=== PATIENT | female | born 1950 | race Caucasian/White ===

== ENCOUNTER → 2017-01-10 | Outpatient (CLI) | payer OTHER ==
[~2017-01-10] MED LIST: ADVIL 200MG TA200 MG PO; ASPIR-LOW81 MG PO; CALCIUM600 M1 PO; CALTRATE 600 +1 TAB PO; CEPHALEXIN500 M1 PO; EXCEDRIN 250 MG1 TAB PO; EXCEDRIN1 TAB PO; FIBER CHOICE1 CTB PO; FIBERCON625 MG PO; FIBRO-TABS1 TAB PO; FISH OIL CONC1000 MG PO; MOTRIN 200200 MG/TAB PO; MULTIPLE VITAMI1 CAP PO; MVI; NORCO 325 MG-51 TAB PO; NORCO 325 MG-7.1 TAB PO; PHENERGAN 25 TA25 MG PO; REQUIP 0.5MG0.5 MG PO; VITAMIN D 400400 IU PO; ZOFRAN 4MG T4 MG/TAB PO
== END ==
LOC: MC.RAD 14:51
DX: Z12.31 Encounter for screening mammogram for malignant neoplasm of breast (principal)

== ENCOUNTER 2017-03-15 06:25 | Day surgery (SDC) | payer OTHER ==
[~2017-03-15] VITALS: Ht 160 cm; Wt 60.3 kg
[2017-03-15 06:40] VITALS: BP 129/72; PULSE 60; TEMP 97.7
[2017-03-15 07:55] VITALS: BP 96/68; PULSE 65; TEMP 97.3
[2017-03-15 08:10] VITALS: BP 109/67; PULSE 54
[2017-03-15 08:25] VITALS: BP 107/64; PULSE 56
[2017-03-15 08:40] VITALS: BP 110/67; PULSE 53
== END 2017-03-15 08:45 | disposition home or self-care (01) ==
LOC: SDCO 06:25
DX: Z12.11 Encounter for screening for malignant neoplasm of colon (principal); K57.30 Diverticulosis of large intestine without perforation or abscess without bleeding; K63.89 Other specified diseases of intestine; Z80.7 Family history of other malignant neoplasms of lymphoid, hematopoietic and related tissues
CPT/HCPCS: OP; J2250; J3010; J7030

== ENCOUNTER → 2017-06-21 | Outpatient (REF) | LOC: WSOH 13:07 | DX: Z02.89 Encounter for other administrative examinations (principal) ==

== ENCOUNTER → 2018-03-03 | Outpatient (CLI) | payer OTHER | LOC: MC.RAD 13:57 | DX: Z12.31 Encounter for screening mammogram for malignant neoplasm of breast (principal) ==

== ENCOUNTER 2018-12-28 12:37 | Emergency (ER) | payer OTHER, MEDICARE ==
[~2018-12-28] VITALS: Ht 160 cm; Wt 57.7 kg
[~2018-12-28 12:37] MED LIST changes: +CALCIUM CARBON650 M2 PO; +FIBERCON PO; +MULTI VITAMINS1 TAB PO
[2018-12-28 12:40] VITALS: TEMP 98.1
[2018-12-28] MEDS ORDERED: GUAIFENESIN DA473 ML (12:48)
[2018-12-28] MEDS ORDERED: PROAIR HFA0.09 MG/AC IH (12:48)
[2018-12-28] MEDS ORDERED: ZITHROMAX 250M250 MG PO (12:49)
[2018-12-28 13:11] LABS: BASO % 0.4 % (0.0-2.0); EOS # 0.1 (0.0-0.7); EOS % 1.8 % (0-4.0); GRAN # 4.2 (1.4-6.5); GRAN % 57.4 % (42.2-75.2); HEMOGLOBIN 13.7 g/dl (12.5-16.0); LYMPH # 2.4 (1.2-3.4); LYMPH % 33.3 % (20.0-51.0); MEAN CELL VOLUME 92 fl (80.0-100.0); MEAN CORPUSCULAR HEMOGLOBIN 31 pg (27.0-31.0); MEAN CORPUSCULAR HGB CONC 33 g/dl (33.0-37.0); MONO # 0.5 (0.1-0.6); MONO % 6.8 % (1.7-9.3); PLATELET COUNT 443 K/mm3 (130-400); RED BLOOD COUNT 4.48 M/mm3 (4.10-5.30); REDCELL DISTRIBUTION WIDTH-CV 11.8 % (11.5-14.5)
[2018-12-28 13:27] LABS: ALANINE AMINOTRANSFERASE 24 U/L (9-52); ALBUMIN 4.5 gm/dL (3.5-5.0); ALKALINE PHOSPHATASE 63 U/L (50-136); ANION GAP 14 mmol/L (7-16); AST,SGOT 25 U/L (15-37); BILIRUBIN,TOTAL 0.5 mg/dL (0.0-1.0); BLOOD UREA NITROGEN 20 mg/dL (7-17); CALCIUM 9.7 mg/dL (8.4-10.2); CARBON DIOXIDE 24 mmol/L (22-30); CHLORIDE 104 mmol/L (98-107); CREATININE, serum 0.68 mg/dL (0.52-1.25); GLUCOSE 138 mg/dL (74-106); POTASSIUM 3.9 mmol/L (3.4-5.0); SODIUM 141 mmol/L (137-145); TOTAL PROTEIN 7.7 gm/dL (6.4-8.2)
[2018-12-28 13:39] LABS: TROPONIN-I < 0.012 ng/mL (0.000-0.035)
[2018-12-28] MEDS ORDERED: PREDNISONE20 MG PO (14:36)
[2018-12-28 15:08] VITALS: BP 110/68; PULSE 89
== END 2018-12-28 15:09 | disposition home or self-care (01) ==
LOC: COL.ER 12:37
PROVIDERS: Emergency Medicine
DX: J20.9 Acute bronchitis, unspecified (principal); Z90.89 Acquired absence of other organs
CPT/HCPCS: J2930; J7030

== ENCOUNTER → 2019-04-06 | Outpatient (CLI) | payer OTHER ==
[~2019-04-06] MED LIST changes: +GUAIFENESIN DA473 ML; +PREDNISONE20 MG PO; +PROAIR HFA0.09 MG/AC IH; +ZITHROMAX 250M250 MG PO
== END ==
LOC: MC.RAD 07:11
DX: Z12.31 Encounter for screening mammogram for malignant neoplasm of breast (principal)

== ENCOUNTER → 2020-07-28 | Outpatient (CLI) | payer OTHER | LOC: MC.RAD 07-14 11:30 | DX: Z12.31 Encounter for screening mammogram for malignant neoplasm of breast (principal) ==

== ENCOUNTER → 2021-05-26 | Outpatient (CLI) | payer OTHER | LOC: COL.RAD 08:55 | DX: R51.9 Headache, unspecified (principal); Z86.79 Personal history of other diseases of the circulatory system ==

== ENCOUNTER → 2021-12-09 | Outpatient (CLI) | payer OTHER | LOC: MC.RAD 10-21 07:30 | DX: Z12.31 Encounter for screening mammogram for malignant neoplasm of breast (principal) ==

== ENCOUNTER 2022-02-10 09:19 | Outpatient (RCR) | payer OTHER | END 2022-02-13 | LOC: WSPT | DX: M75.41 Impingement syndrome of right shoulder (principal); M75.81 Other shoulder lesions, right shoulder ==

== ENCOUNTER 2022-02-26 12:45 | Outpatient (RCR) | payer OTHER ==
[2022-03-05] MEDS ORDERED: DESYREL 100MG100 MG PO (15:28)
[2022-03-05] MEDS ORDERED: CALCIUM 600 PLU1 TAB PO (15:28)
[2022-03-08] MEDS ORDERED: FIBERCON PO (08:36)
== END 2022-03-16 | disposition home or self-care (01) ==
LOC: WSPT
DX: M75.41 Impingement syndrome of right shoulder (principal); M67.813 Other specified disorders of tendon, right shoulder

== ENCOUNTER → 2022-05-17 | Outpatient (CLI) | payer OTHER ==
[~2022-05-17] MED LIST changes: +CALCIUM 600 PLU1 TAB PO; +DESYREL 100MG100 MG PO
== END ==
LOC: COL.RAD 11:29
DX: M19.011 Primary osteoarthritis, right shoulder (principal)

== ENCOUNTER → 2022-05-19 | Outpatient (CLI) | payer OTHER | LOC: MHCPAIN 11:19 | DX: M25.511 Pain in right shoulder (principal) | CPT/HCPCS: G0463; J3301 ==

== ENCOUNTER → 2022-09-16 | Outpatient (CLI) | payer MEDICARE, BC ==
[~2022-09-16] MED LIST changes: +FLEXERIL5 MG PO
== END ==
LOC: MHCPAIN 13:53
DX: M75.51 Bursitis of right shoulder (principal); M25.511 Pain in right shoulder
CPT/HCPCS: J3301

== ENCOUNTER 2022-11-14 14:24 | Emergency (ER) | payer MEDICARE, BC ==
[~2022-11-14] VITALS: Ht 160 cm; Wt 57.7 kg
[~2022-11-14 14:24] MED LIST changes: -FLEXERIL5 MG PO
[2022-11-14 14:35] VITALS: BP 149/81; TEMP 98
[2022-11-14] MEDS ORDERED: FLEXERIL5 MG PO (15:04)
[2022-11-14 15:25] VITALS: PULSE 70
== END 2022-11-14 15:25 | disposition home or self-care (01) ==
LOC: COL.ER 14:24
DX: M43.6 Torticollis (principal)
CPT/HCPCS: J1885

== ENCOUNTER → 2023-02-09 | Outpatient (CLI) | payer MEDICARE, BC ==
[~2023-02-09] MED LIST changes: +FLEXERIL5 MG PO
== END ==
LOC: MHCPAIN 10:51
DX: M25.511 Pain in right shoulder (principal); M67.813 Other specified disorders of tendon, right shoulder
CPT/HCPCS: J3301

== ENCOUNTER → 2023-10-20 | Outpatient (CLI) | payer MEDICARE | LOC: MC.RAD 16:46 | DX: Z12.31 Encounter for screening mammogram for malignant neoplasm of breast (principal) ==

== ENCOUNTER → 2023-12-05 | Outpatient (CLI) | payer MEDICARE, BC ==
[~2023-12-05] MED LIST changes: +Lidocaine PF 1% (10 MG/ML) 5 ML VIAL ONE; +Triamcinolone 40 MG/ML 1 ML VIAL ONE
== END ==
LOC: MHCPAIN 13:13
DX: M25.511 Pain in right shoulder (principal); M13.842 Other specified arthritis, left hand
CPT/HCPCS: J3301

== ENCOUNTER → 2024-01-19 | Outpatient (CLI) | payer MEDICARE, BC | LOC: MHCPAIN 11:13 | DX: M75.52 Bursitis of left shoulder (principal); M19.011 Primary osteoarthritis, right shoulder; M25.512 Pain in left shoulder | CPT/HCPCS: G0463; J3301 ==

== ENCOUNTER → 2024-06-14 | Outpatient (CLI) | payer MEDICARE, BC ==
[~2024-06-14] MED LIST changes: -Lidocaine PF 1% (10 MG/ML) 5 ML VIAL ONE
== END ==
LOC: MHCPAIN 15:14
DX: M54.81 Occipital neuralgia (principal); M54.2 Cervicalgia; R51.9 Headache, unspecified
CPT/HCPCS: G0463; J0665; J3301